=== PATIENT | female | born 1965 | race Caucasian/White ===

== ENCOUNTER 2017-01-29 15:35 | Emergency (ER) | payer OTHER ==
[~2017-01-29] VITALS: Wt 75.0 kg
[2017-01-29] MEDS ORDERED: KETOROLAC 30 MG INJ IM STA (16:12)
[2017-01-29 16:26] LABS: URINE BLOOD (Dip) POC Negative (NEGATIVE)
--- NOTE | 2017-01-29 16:59 | ERD ---
ER Documentation Chief Complaint Date/Time DATE: 01/29/17 TIME: 16:58 Chief Complaint back pain HPI This 51-year-old female who presents to the emergency department today complaining of sharp stabbing pain in her back that started today while she was mopping. Patient states she has pain with walking. She states that this happened to her one month ago but then it improved and returned again today. Denies any fevers or chills, dysuria, loss of bowel or bladder control. ROS All systems reviewed and are negative except as per history of present illness. Medications Home Meds Active Scripts Prednisone* (Prednisone*) 20 Mg Tab, 40 MG PO DAILY for 4 Days, TAB Prov:CARMINE KOROMA PA-C 01/29/17 Naproxen* (Naprosyn*) 500 Mg Tablet, 500 MG PO BID Y for PAIN AND/OR INFLAMMATION, #30 TAB Prov:CARMINE KOROMA PA-C 01/29/17 Tramadol HCl (Tramadol HCl) 50 Mg Tablet, 50 MG PO Q4 Y for PAIN, #20 TAB Prov:CARMINE KOROMA PA-C 01/29/17 Allergies Allergies: Coded Allergies: Sulfa (Sulfonamide Antibiotics) (Verified Allergy, Unknown, 06/17/14) PMhx/Soc History of Surgery: No Anesthesia Reaction: No Hx Neurological Disorder: No Hx Respiratory Disorders: No Hx Cardiac Disorders: No Hx Psychiatric Problems: No Hx Miscellaneous Medical Probl: No Hx Alcohol Use: No Hx Substance Use: No Hx Tobacco Use: No Smoking Status: Never smoker Physical Exam Vitals Vital Signs Date Time Temp Pulse Resp B/P Pulse Ox O2 Delivery O2 Flow Rate FiO2 01/29/17 15:43 98.3 112 20 139/68 98 Physical Exam Const: No acute distress Head: Atraumatic Eyes: Normal Conjunctiva ENT: Normal External Ears, Nose and Mouth. Neck: Full range of motion..~ No meningismus. Resp: Clear to auscultation bilaterally Cardio: Regular rate and rhythm, no murmurs Skin: No petechiae or rashes Back: Lumbar spine midline tenderness. No paraspinal tenderness. Slight improvement in pain with flexion. Pain with extension. Pulses 2+. Distal neurovascularly intact. Ext: No cyanosis, or edema Neur: Awake and alert Psych: Normal Mood and Affect Results 24 hrs Laboratory Tests Test 01/29/17 16:30 Bedside Urine pH (LAB) 7.0 Bedside Urine Protein (LAB) Negative Bedside Urine Glucose (UA) Negative Bedside Urine Ketones (LAB) Negative Bedside Urine Blood Negative Bedside Urine Nitrite (LAB) Negative Bedside Urine Leukocyte Esterase (L Negative Current Medications Medications (Trade) Dose Ordered Sig/Sujata Route PRN Reason Start Time Stop Time Status Last Admin Dose Admin Ketorolac Tromethamine (Toradol) 30 mg ONCE STAT IM 01/29/17 16:12 01/29/17 16:13 DC 01/29/17 16:24 Prednisone (Prednisone) 60 mg ONCE ONCE PO 01/29/17 17:30 01/29/17 17:31 DC 01/29/17 17:16 DIAGNOSTIC IMAGING REPORT Patient: DULCE MARIA FOUNTAIN : 1965 Age: 51 Sex: F MR #: [id number] DOS: 01/29/17 0000 Ordering MD: CARMINE KOROMA PA-C Location: [facility] [place] Room/Bed: PROCEDURE: XR Lumbar Spine. CLINICAL INDICATION: Lumbar spine pain. TECHNIQUE: AP, lateral, and cone-down lateral view of the lumbar spine were obtained. COMPARISON: No prior studies are available for comparison. FINDINGS: There is 2-3 mm of anterolisthesis of L4 on L5 due to moderate facet spondylosis at this level. There are anterior osteophytes from L3-S1 with mild narrowing of the intervertebral disc spaces at L4-5 and L5-S1. There are mild associated discogenic endplate changes at L5-S1. The vertebral body heights are maintained. The marrow density is in appearance. There is moderate facet spondylosis at L4-5 and L5-S1 with suggestion of neural foraminal narrowing at L5-S1. The remaining neural foramina appear patent. The paraspinal soft tissues unremarkable. There is no evidence of fracture. The posterior elements are unremarkable. IMPRESSION: 1. Moderate facet spondylosis at L4-5 with grade 1 anterolisthesis. 2. Mild to moderate degenerative disc disease at L4-5 and L5-S1. 3. Moderate facet spondylosis at L4-5 and L5-S1 with suggestion of neural foraminal narrowing at L5-S1. 4. No evidence of fracture. RPTAT: HGAS .Shon Green MD, MD Date Time Electronically viewed and signed by .Shon Green MD, on 01/29/2017 17: 08 .S/ CC: CARMINE KOROMA PA-C Procedures/MDM This is a 51-year-old female who presents to the emergency department today complaining of back pain for the past month and worse over the past day. I did obtain a UA that was negative for infection or hematuria Per the radiology report images of the lumbar spine shows moderate facet spondylosis at L4 and 5 with grade 1 anterolisthesis. There is mild to moderate degenerative disc disease at L4 and 5 and L5 and S1. There is moderate facet spondylosis at L4 and 5 and L5 and S1 with suggestion of neural foraminal narrowing at L5 and S1. There is no evidence of fracture. Low suspicion for acute fracture or dislocation. Patient is afebrile and otherwise well-appearing. They have no loss of bowel or bladder control. Low suspicion for cauda equina or abscess. Patient's back pain likely acute on chronic secondary degenerative disc disease. I have explained this to the patient. Patient was given Toradol and prednisone here in the emergency department and pain improved. Patient will be given a prescription for prescription for short course of tramadol, Naprosyn and prednisone for home she was instructed to follow-up with a primary care physician for referral to trade show specialist. At this time the patient is stable for discharge and outpatient management. Patient should follow up with their PCP in the next 1-2 days. They may return to the emergency department sooner for any persistent or worsening of symptoms. Patient understood and agreed with the plan. Departure Diagnosis: Primary Impression: Back pain Back pain location: low back pain Chronicity: chronic Back pain laterality : bilateral Sciatica presence: unspecified whether sciatica present Qualified Code: M54.5 - Chronic bilateral low back pain, with sciatica presence unspecified Condition: Fair CARMINE KOROMA PA-C Jan 29, 2017 16:59
--- NOTE | 2017-01-29 17:09 | RADRPT ---
PROCEDURE: XR Lumbar Spine. CLINICAL INDICATION: Lumbar spine pain. TECHNIQUE: AP, lateral, and cone-down lateral view of the lumbar spine were obtained. COMPARISON: No prior studies are available for comparison. FINDINGS: There is 2-3 mm of anterolisthesis of L4 on L5 due to moderate facet spondylosis at this level. The re are anterior osteophytes from L3-S1 with mild narrowing of the intervertebral disc spaces at L4-5 and L5-S1. There are mild associated discogenic endplate changes at L5-S1. The vertebral body heig hts are maintained. The marrow density is in appearance. There is moderate facet spondylosis at L4 -5 and L5-S1 with suggestion of neural foraminal narrowing at L5-S1. The remaining neural foramina appear patent. The paraspinal soft tissues unremarkable. There is no evidence of fracture. The po sterior elements are unremarkable. IMPRESSION: 1. Moderate facet spondylosis at L4-5 with grade 1 anterolisthesis. 2. Mild to moderate degenerative disc disease at L4-5 and L5-S1. 3. Moderate facet spondylosis at L4-5 and L5-S1 with suggestion of neural foraminal narrowing at L5 -S1. 4. No evidence of fracture. RPTAT: HGAS .Shon Green MD, Date Time Electronically viewed and signed by .Shon Green MD, on 01/29/2017 17:08 .S/
[2017-01-29] MEDS ORDERED: predniSONE 20 MG TAB PO ONE (17:30)
[2017-01-29] MEDS ORDERED: TRAM50TA2 PO (17:44)
[2017-01-29] MEDS ORDERED: NAPR-260 PO (17:44)
[2017-01-29] MEDS ORDERED: PRED20TA PO (17:44)
== END 2017-01-29 17:54 | disposition home or self-care (01) ==
LOC: FTE 15:35
DX: M54.5 Low back pain (principal)
CPT/HCPCS: 72100; 81003; 96372; J1885; J7512; Z7502

== ENCOUNTER 2017-05-23 16:34 | Emergency (ER) | payer OTHER ==
[~2017-05-23] VITALS: Ht 157.5 cm; Wt 64.5 kg
[~2017-05-23 16:34] MED LIST: NAPR-260 PO; PRED20TA PO; TRAM50TA2 PO
[2017-05-23 16:39] VITALS: Ht 157.5 cm; Wt 64.5 kg
[2017-05-23] MEDS ORDERED: SOD CHLORIDE 0.9% 1,000 ML IV STA (16:52)
[2017-05-23 17:22] LABS: ABNORMAL IP MESSAGE 1; BASOPHIL # 0.1 10^3/ul (0.0-0.1); BASOPHILS % 0.3 % (0.0-2.0); HEMATOCRIT 30.6 % (37.0-47.0); HEMOGLOBIN 8.6 g/dl (12.0-16.0); LYMPHOCYTES # 3.3 10^3/ul (0.8-2.9); LYMPHOCYTES % 15.6 % (15.0-51.0); MEAN CORPUSCULAR HGB CONC 28.1 g/dl (32.0-37.0); MEAN CORPUSCULAR VOLUME 60.6 fl (82.0-101.0); MEAN PLATELET VOLUME 10.2 fl (7.4-10.4); MONOCYTE # 1.8 10^3/ul (0.3-0.9); MONOCYTES % 8.5 % (0.0-11.0); NEUTROPHIL # 15.6 10^3/ul (1.6-7.5); NEUTROPHILS % 74.6 % (39.0-77.0); PLATELET COUNT 499 10^3/UL (140-415); RED BLOOD COUNT 5.05 10^6/ul (4.20-5.40); RED CELL DISTRIBUTION WIDTH 19.7 % (11.5-14.5); WHITE BLOOD COUNT 20.9 10^3/ul (4.8-10.8)
[2017-05-23 17:34] LABS: POSITIVE DIFF @See below
--- NOTE | 2017-05-23 17:46 | RADRPT ---
PROCEDURE: Chest x-ray CLINICAL INDICATION: Chest pain TECHNIQUE: Chest single view COMPARISON: None FINDINGS: The heart is normal in size. The pulmonary vessels are normal in caliber. The lungs are clear. Th e costophrenic angles are sharp. The visualized bony thorax is unremarkable. IMPRESSION: No acute cardiopulmonary disease. RPTAT: HH .Rickey Madsen MD, Date Time Electronically viewed and signed by .Rickey Madsen MD, MD on 05/23/2017 17:46 .W/
[2017-05-23 17:57] LABS: TROPONIN-I < 0.012 ng/ml (0.00-0.12)
[2017-05-23 17:58] LABS: ANION GAP 16 (8-16); BLOOD UREA NITROGEN 13 mg/dl (7-20); CARBON DIOXIDE 25 mmol/L (21-31); CHLORIDE 100 mmol/L (97-110); CREATININE 0.84 mg/dl (0.44-1.00); GLUCOSE 115 mg/dl (70-220); POTASSIUM 3.3 mmol/L (3.5-5.1); SODIUM 138 mmol/L (135-144)
[2017-05-23] MEDS ORDERED: SODIUM CHLORIDE 0.9% 1L BAG IV* STA (18:48)
[2017-05-23 19:28] LABS: URINE BLOOD (Dip) POC 2+ (NEGATIVE)
[2017-05-23] MEDS ORDERED: CEFTRIAXONE 1 GM/50 ML (PMX) 50 ML IVPB ONE (19:30)
--- NOTE | 2017-05-23 19:37 | ERD ---
ER Documentation Chief Complaint Chief Complaint Complains of fainting with vomiting and fever today HPI This is a 51-year-old female presents to the ER for evaluation of generalized weakness and syncopal episode. This patient states that she was feeling weak and fainted today. She does state that she is having some pain in her left rib cage. The patient stated she also had a fever and came to the emergency room today for evaluation of her symptoms. The patient denies any shortness of breath, but does state that she has nausea and has had one episode of nonbloody vomiting. Patient did come to the emergency room for evaluation of her symptoms. She denies any other trauma, denies any head injury. ROS All systems reviewed and are negative except as per history of present illness. Medications Home Meds Active Scripts Prednisone* (Prednisone*) 20 Mg Tab, 40 MG PO DAILY for 4 Days, TAB Prov:CARMINE KOROMA PA-C 01/29/17 Naproxen* (Naprosyn*) 500 Mg Tablet, 500 MG PO BID Y for PAIN AND/OR INFLAMMATION, #30 TAB Prov:CARMINE KOROMA PA-C 01/29/17 Tramadol HCl (Tramadol HCl) 50 Mg Tablet, 50 MG PO Q4 Y for PAIN, #20 TAB Prov:CARMINE KOROMA PA-C 01/29/17 Allergies Allergies: Coded Allergies: Sulfa (Sulfonamide Antibiotics) (Verified Allergy, Unknown, 06/17/14) PMhx/Soc History of Surgery: No Anesthesia Reaction: No Hx Neurological Disorder: No Hx Respiratory Disorders: No Hx Cardiac Disorders: No Hx Psychiatric Problems: No Hx Miscellaneous Medical Probl: No Hx Alcohol Use: No Hx Substance Use: No Hx Tobacco Use: No Smoking Status: Never smoker Physical Exam Vitals Vital Signs Date Time Temp Pulse Resp B/P Pulse Ox O2 Delivery O2 Flow Rate FiO2 05/23/17 16:39 98.7 93 20 99/57 99 Physical Exam INITIAL VITAL SIGNS: Reviewed by me GENERAL: The patient is well developed and appropriate for usual state of health in no apparent distress HEENT: Pupils equal, round, and reactive to light. EOMI. There is no scleral icterus. NECK: C-spine is soft and supple, there is no meningismus. There is no cervical lymphadenopathy. LUNGS: Clear to auscultation bilaterally. There are no rales, wheezes or rhonchi. HEART: Regular rate and rhythm, no murmurs, clicks, rubs or gallops. ABDOMEN: Superpubic tenderness to palpation, otherwise soft, non-tender, non- distended. There are bowel sounds in all four quadrants. No rebound or guarding. EXTREMITIES: There is no peripheral cyanosis or edema. No focal swelling or erythema. NEUROLOGICAL: The patient moves all four extremities with 5/5 strength. Cranial nerves II - XII are intact. Normal gait. Alert and oriented SKIN: Palpation of the left lateral rib cage, there is no apparent rash or petechiae. HEME/LYMPHATIC: There is no evidence of excessive bruising or lymphedema. PSYCHIATRIC: The patient does not appear anxious or depressed. Result Diagram: 05/23/17170405/23/171704 Results 24 hrs Laboratory Tests Test 05/23/17 17:05 05/23/17 19:28 White Blood Count 20.910^3/ul Red Blood Count 5.0510^6/ul Hemoglobin 8.6g/dl Hematocrit 30.6% Mean Corpuscular Volume 60.6fl Mean Corpuscular Hemoglobin 17.0pg Mean Corpuscular Hemoglobin Concent 28.1g/dl Red Cell Distribution Width 19.7% Platelet Count 15683^3/UL Mean Platelet Volume 10.2fl Neutrophils % 74.6% Lymphocytes % 15.6% Monocytes % 8.5% Eosinophils % 0.0% Basophils % 0.3% Nucleated Red Blood Cells % 0.0/100WBC Neutrophils # 15.610^3/ul Lymphocytes # 3.310^3/ul Monocytes # 1.810^3/ul Eosinophils # 0.010^3/ul Basophils # 0.110^3/ul Nucleated Red Blood Cells # 0.010^3/ul Sodium Level 138mmol/L Potassium Level 3.3mmol/L Chloride Level 100mmol/L Carbon Dioxide Level 25mmol/L Anion Gap 16 Blood Urea Nitrogen 13mg/dl Creatinine 0.84mg/dl Glucose Level 115mg/dl Calcium Level 9.0mg/dl Troponin I < 0.012ng/ml Bedside Urine pH (LAB) 6.0 Bedside Urine Protein (LAB) 2+ Bedside Urine Glucose (UA) Negative Bedside Urine Ketones (LAB) Negative Bedside Urine Blood 2+ Bedside Urine Nitrite (LAB) Negative Bedside Urine Leukocyte Esterase (L 3+ Current Medications Medications (Trade) Dose Ordered Sig/Sujata Route PRN Reason Start Time Stop Time Status Last Admin Dose Admin Sodium Chloride (NS) 1,000 ml @ 1,000 mls/hr Q1H STAT IV 05/23/17 16:52 05/23/17 17:51 DC 05/23/17 17:23 Sodium Chloride 2000 ml 2,000 ml BOLUS OVER 2 HOURS STAT IV* 05/23/17 18:48 05/23/17 18:49 DC Ceftriaxone Sodium (Rocephin) 50 ml @ 100 mls/hr ONCE ONCE IVPB 05/23/17 19:30 05/23/17 19:59 Procedures/MDM EKG: Rate/Rhythm: [Normal Sinus Rhythm] QRS, ST, T-waves: [No changes consistent w/ acute ischemia] Impression: [No evidence of ischemia or arrhythmia] Chest X-ray 1V Interpreted by me: Soft Tissue: No acute abnormalities Bones: No acute abnormalities Mediastinum/Cardiac Silhouette/Lungs: [No acute abnormalities] This 51-year-old female presents to the emergency room for evaluation of generalized weakness and syncopal episode. The patient's family members are at bedside and did state that she had a fever earlier. She did not take any medication for the fever. She was afebrile in the emergency room. The patient did have some tenderness to palpation on the left chest wall. X-ray was obtained, chest x-ray is clear at this time. This patient did have lab work drawn which does show white blood cell count of 21,000. The patient had an influenza swab which was negative. She was given greater than 30 cc/kg of IV normal saline. [id number] urinalysis does show 3+ leukocyte esterase and the patient does state that her urine has been darker than normal. The patient was given 1 g of Rocephin and will be discharged after her x-rays are obtained. The patient will be discharged home with a prescription for ciprofloxacin to take over the course of the next 2 weeks. EKG is nonischemic, troponin is negative. Departure Diagnosis: Primary Impression: Syncope Additional Impressions: Acute cystitis Microcytic anemia Condition: Stable CIRA LEVIN DO May 23, 2017 19:37
[2017-05-23] MEDS ORDERED: CIPR500T4 PO (19:38)
[2017-05-23 20:15] LABS: ADD UMIC YES; UR ASCORBIC ACID NEGATIVE (NEGATIVE); UR BACTERIA FEW /HPF (NONE SEEN); UR BILIRUBIN (Dip) NEGATIVE (NEGATIVE); UR BLOOD (Dip) 1+ mg/dL (NEGATIVE); UR CLARITY CLOUDY (CLEAR); UR COLOR YELLOW (YELLOW); UR GLUCOSE (Dip) NEGATIVE (NEGATIVE); UR KETONES (Dip) TRACE mg/dL (NEGATIVE); UR LEUKOCYTE ESTERASE (Dip) 3+ Leu/ul (NEGATIVE); UR NITRITE (Dip) NEGATIVE (NEGATIVE); UR RBC 10 /HPF (0-5); UR SPECIFIC GRAVITY (Dip) 1.006 (1.003-1.030); UR TOTAL PROTEIN (Dip) 1+ mg/dl (NEGATIVE); UR UROBILINOGEN (Dip) NEGATIVE (NEGATIVE)
--- NOTE | 2017-05-23 21:03 | RADRPT ---
PROCEDURE: Left rib x-rays CLINICAL INDICATION: Chest pain. TECHNIQUE: 3 views of the left ribs. COMPARISON: None available. FINDINGS: No acute displaced rib fracture is identified. There is no pneumothorax. The lungs are clear. The cardiac silhouette is not enlarged. There is no pleural effusion. IMPRESSION: 1. No acute rib fracture is identified, although the presence of a nondisplaced rib fracture cannot be excluded. RPTAT: HTAR .Juan Kulkarni MD, MD Date Time Electronically viewed and signed by .Juan Kulkarni MD, on 05/23/2017 21:03 .R/
[2017-05-23] MEDS ORDERED: HYDROCODONE/APAP (5/325) TAB ONE (22:54)
[2017-05-23] MEDS ORDERED: ONDANSETRON (ODT) 4 MG TAB ODT ONE (22:54)
[2017-05-24 00:43] LABS: CREATINE KINASE 68 IU/L (23-200)
[2017-05-24 01:03] VITALS: BP 116/55; PULSE 91; RESP 16; TEMP 99
[2017-05-24 01:14] LABS: CK-MB < 0.22 ng/ml (0.0-2.4); TROPONIN-I < 0.012 ng/ml (0.00-0.12)
== END 2017-05-24 01:05 | disposition home or self-care (01) ==
LOC: E/R 16:34
DX: R55 Syncope and collapse (principal); N30.00 Acute cystitis without hematuria; D50.9 Iron deficiency anemia, unspecified
CPT/HCPCS: 36415; 71010; 71100; 80048; 81001; 82550; 82553; 84484; 85025; 87400; 96374; J0696; J7030; Z7502; Z7610; 81003; 93005

== ENCOUNTER 2017-10-15 14:22 | Emergency (ER) | END 2017-10-15 23:29 | disposition home or self-care (01) ==

== ENCOUNTER 2018-08-05 13:30 | Emergency (ER) | payer OTHER ==
[~2018-08-05] VITALS: Ht 154.9 cm; Wt 73.1 kg
[2018-08-05 13:43] VITALS: Ht 154.9 cm; Wt 73.1 kg
[2018-08-05] MEDS ORDERED: KETOROLAC 30 MG INJ IM STA (16:53)
[2018-08-05] MEDS ORDERED: IBUP-1542 PO (17:46)
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
[2018-08-05 18:46] VITALS: BP 160/69; PULSE 75; RESP 18
== END 2018-08-05 18:47 | disposition home or self-care (01) ==
LOC: FTE 13:30
DX: S82.62XA Displaced fracture of lateral malleolus of left fibula, initial encounter for closed fracture (principal); W19.XXXA Unspecified fall, initial encounter; Y92.9 Unspecified place or not applicable
CPT/HCPCS: 29515; 73610; 96372; J1885; Z7502

== ENCOUNTER 2018-09-09 11:58 | Emergency (ER) | payer OTHER ==
[~2018-09-09] VITALS: Ht 157.5 cm; Wt 72.0 kg
[~2018-09-09 11:58] MED LIST changes: +IBUP-1542 PO; -NAPR-260 PO; -PRED20TA PO; -TRAM50TA2 PO
[2018-09-09 12:03] VITALS: Ht 157.5 cm; Wt 72.0 kg
[2018-09-09] MEDS ORDERED: predniSONE 20 MG TAB PO ONE (12:30)
[2018-09-09] MEDS ORDERED: BENZONATATE 100 MG CAP PO ONE (12:30)
[2018-09-09] MEDS ORDERED: PRED20TA PO (12:43)
[2018-09-09] MEDS ORDERED: BENZ200C68 PO (12:43)
[2018-09-09 13:06] VITALS: BP 141/59; PULSE 99; RESP 21
--- NOTE | 2018-09-09 13:15 | ERD ---
ER Documentation Chief Complaint Chief Complaint COUGH WITH CHEST WALL PAIN/SORE THROAT/INTERMITTENT FEVER HPI 52-year-old female with no significant past medical history presenting to the emergency department complaining of moderate, intermittent, cough which is worse at night for the past 3 weeks. She denies any fevers, chills, or other symptoms at this time. ROS All systems reviewed and are negative except as per history of present illness. Medications Home Meds Active Scripts Benzonatate* (Benzonatate*) 200 Mg Capsule, 200 MG PO TID PRN for COUGH, #15 CAP Prov:LISSA SALCEDO PA-C 09/09/18 Prednisone* (Prednisone*) 20 Mg Tab, 20 MG PO DAILY for 4 Days, TAB Prov:LISSA SALCEDO PA-C 09/09/18 Ibuprofen* (Motrin*) 600 Mg Tab, 600 MG PO Q6H PRN for PAIN AND OR ELEVATED TEMP, #30 TAB Prov:MAYELIN KHOURY DO 08/05/18 Allergies Allergies: Coded Allergies: Sulfa (Sulfonamide Antibiotics) (Verified Allergy, Unknown, 09/09/18) PMhx/Soc Medical and Surgical Hx: pt denies Surgical Hx History of Surgery: No Anesthesia Reaction: No Hx Neurological Disorder: No Hx Respiratory Disorders: Yes (BRONCHITIS) Hx Cardiac Disorders: No Hx Psychiatric Problems: No Hx Miscellaneous Medical Probl: No Hx Alcohol Use: Yes (SOCIALLY) Hx Substance Use: No Hx Tobacco Use: No Smoking Status: Never smoker FmHx Family History: No diabetes Physical Exam Vitals Vital Signs Date Temp Pulse Resp B/P (MAP) Pulse Ox O2 O2 Flow FiO2 Time Delivery Rate 09/09/18 98.3 99 21 141/59 99 Room Air 13:06 (86) 09/09/18 98.5 112 20 161/67 99 12:03 (98) Physical Exam Const: No acute distress Head: Atraumatic Eyes: Normal Conjunctiva ENT: Normal External Ears, Nose and Mouth. Neck: Full range of motion. No meningismus. Resp: Clear to auscultation bilaterally Cardio: Regular rate and rhythm, no murmurs Skin: No petechiae or rashes Ext: No cyanosis, or edema Neur: Awake and alert Psych: Normal Mood and Affect Results 24 hrs Current Medications Medications Dose Sig/Sujata Start Time Status Last (Trade) Ordered Route PRN Stop Time Admin Dose Reason Admin Benzonatate 200 mg ONCE ONCE 09/09/18 DC 09/09/18 (Tessalon) PO 12:30 09/09/18 12:39 12:31 Prednisone 40 mg ONCE ONCE 09/09/18 DC 09/09/18 (Prednisone) PO 12:30 09/09/18 12:21 12:31 [place] [id number] Radiology Main Line: [phone] DIAGNOSTIC IMAGING REPORT Patient: DULCE MARIA FOUNTAIN : 1965 Age: 52 Sex: F MR #: [id number] DOS: 09/09/18 0000 Ordering MD: LISSA SALCEDO PA-C Location: [facility] Room/Bed: PROCEDURE: XR Chest. CLINICAL INDICATION: Cough . TECHNIQUE: Single frontal chest x-ray. COMPARISON: CHEST 10/15/2017 FINDINGS: The lungs are clear of acute infiltrates, edema, effusions, or masses.. The cardiomediastinal silhouette is unremarkable. The osseous structures are intact. IMPRESSION: No acute cardiopulmonary disease. RPTAT: GG .Jordy Baldwin MD, MD Date Time Electronically viewed and signed by .Jordy Baldwin MD, MD on 09/09/2018 12:39 .L/ CC: LISSA SALCEDO PA-C [id number] Procedures/MDM 52-year-old female presenting to the emergency department complaining of cough intermittently for the past 3 weeks. The patient is well and nontoxic-appearing. Vital signs are stable. Chest x-ray is negative for any acute abnormalities. The full report interpreted by the radiologist may be viewed above. The patient's clinical presentation is very consistent with an acute viral syndrome. The patient does not exhibit any clinical signs or symptoms concerning for serious bacterial infection or systemic illness. Based on history and clinical exam findings the patient does not appear to have evidence of pneumonia, strep pharyngitis, urinary tract infection, bacteremia, sepsis, or meningitis. For these reasons I do not believe it is necessary to obtain laboratory testing. I believe it would be appropriate for symptom control, and close outpatient primary care follow-up. Based on patient's history of present illness and physical examination the decision was made to discharge. There is no evidence of life threatening injuries or illnesses at this time. On re-examination, patient resting in no distress, stable vital signs, reports feeling better and safe for discharge with outpatient follow up with PMD in 1-2 days. Patient given return precautions. Patient's blood pressure was elevated (>120/80) but appears stable without evidence of hypertension emergency or urgency. The patient is to follow-up and pursue outpatient monitoring and therapy with their primary care physician within 1 week and return immediately if they have any new, worsening, or concerning symptoms. Departure Diagnosis: Primary Impression: Cough Condition: Fair Patient Instructions: Cough, Chronic, Uncertain Cause, (Adult) Additional Instructions: Call your primary care doctor TOMORROW for an appointment during the next 1-2 days.See the doctor sooner or return here if your condition worsens before your appointment time. LISSA SALCEDO PA-C Sep 09, 2018 13:15
== END 2018-09-09 13:01 | disposition home or self-care (01) ==
LOC: FTE 11:58
DX: R05 Cough (principal)
CPT/HCPCS: 71045; J7512; Z7502; Z7610